=== PATIENT | male | born 1990 | race Caucasian/White ===

== ENCOUNTER 2017-05-19 11:16 | Emergency (ER) | payer OTHER ==
--- NOTE | 2017-05-19 11:34 | EDPHY ---
H & P Stated Complaint: r abd pain Time Seen by Provider: 05/19/17 11:24 HPI/ROS: CHIEF COMPLAINT: Right lower abdominal pain times 4 days HISTORY OF PRESENT ILLNESS: 27-year-old male generally healthy in the ER via private vehicle with mother complaining of right lower abdominal pain which initially started as mild right flank pain but is now progressed to right lower quadrant abdominal pain reproducible with palpation, going over bumps, present for the past 4 days. No nausea or vomiting. Last oral intake was dinner last night. No urinary abnormality. No testicular pain. No current complaints of back or flank pain. REVIEW OF SYSTEMS: A ten point review of systems was performed and is negative with the exception of the items mentioned in the HPI PAST MEDICAL & SURGICAL HISTORY: No pertinent medical or surgical history SOCIAL HISTORY: Daily cigarette smoker PHYSICAL EXAM (Prior to examination, patient consented to physical exam, hands were washed and my usual and customary physical exam procedures followed) 1) GENERAL: Well-developed, well-nourished, alert and oriented. Appears uncomfortable 2) HEAD: Normocephalic, atraumatic 3) HEENT: Pupils equal, round, reactive to light bilaterally. Sclera anicteric. [Nasopharynx, oropharynx, clear, no lesions. Dry mucous membrane 4) NECK: Full range of motion, no meningeal signs. 5) LUNGS: Clear auscultation bilaterally, no wheezes, no rhonchi, no retractions. 6) HEART: Regular rate and rhythm, no murmur, no heave, no gallop. 7) ABDOMEN: No guarding, positive McBurney's point pain, negative Villanueva's, negative Rovsing's, negative peritoneal sign, 8) MUSCULOSKELETAL: Moving all extremities, no focal areas of tenderness, no obvious trauma. No peripheral edema or discoloration. 9) BACK: No CVA tenderness, no midline vertebral tenderness, no fluctuance, no step-off, no obvious trauma, no visual or palpable abnormality. 10) SKIN: No rash, no petechiae. 11) : Normal male external genitalia bilateral testicles nontender, no high- riding testicle, no urethral discharge, cremasteric reflex present and brisk bilaterally. DIFFERENTIAL DIAGNOSIS: [My differential diagnosis includes, but is not limited to, acute appendicitis, acute cholecystitis, bowel obstruction, acute pancreatitis, testicular torsion, gastritis and urinary tract infection. The patient understands that this diagnosis is provisional and can never be 100% accurate. This is a partial list of diagnoses considered. These considerations are based on history, physical exam, past history and reassessment. - Personal History Current Tetanus/Diphtheria Vaccine: Yes Tetanus Vaccine Date: 2004 - Medical/Surgical History Hx Asthma: No Hx Chronic Respiratory Disease: No Hx Diabetes: No Hx Cardiac Disease: No Hx Renal Disease: No Hx Cirrhosis: No Hx Alcoholism: No Hx HIV/AIDS: No Hx Splenectomy or Spleen Trauma: No Other PMH: bleeding ulcers - Social History Smoking Status: Never smoked Constitutional: Initial Vital Signs Temperature (C) 36.6 C 05/19/17 11:20 Heart Rate 54 L 05/19/17 11:20 Respiratory Rate 17 05/19/17 11:20 Blood Pressure 111/62 05/19/17 11:20 O2 Sat (%) 97 05/19/17 11:20 O2 Delivery Mode Room Air Allergies/Adverse Reactions: oxycodone HCl [From Percocet] Allergy (Severe, Verified 05/19/17 11:19) Penicillins Allergy (Severe, Verified 05/19/17 11:19) Medical Decision Making - Diagnostics Imaging Results: Imaging Impressions Abdomen CT 05/19/17 11:32 Impression: 1. Normal CT appearance of the appendix. 2. Features suggestive of a gastroenteritis, with no mechanical obstruction. Findings were discussed with Nito Mensah PA-C at 13:38, on 05/19/2017. Images reviewed by myself ED Course/Re-evaluation: 11:34 a.m.: Patient is focally tender to palpation McBurney's point. Will obtain diagnostic studies and re-evaluated. He remains NPO since dinner last evening. Care of patient under supervision of secondary supervising physician Dr Estevez with whom I discussed case. Patient is focally tender to palpation McBurney's point. Indications risks benefits of CT imaging discussed with patient he consents. 143 p.m.: Re-evaluation. Discussed his CT showing normal appearing appendix. At this time I do not think that further diagnostic studies are indicated. Plan will be discharge home with analgesia, usual and customary abdominal precautions instructions. Patient feels comfortable being discharged. All questions and concerns addressed by myself. - Data Points Laboratory Results: Laboratory Results 05/19/17 11:33 05/19/17 11:33 05/19/17 05/19/17 05/19/17 11:52 11:38 11:33 WBC RBC Hgb POC Hgb 14.6 gm/dL gm/dL (13.7-17.5) Hct POC Hct 43 % % (40-51) MCV MCH MCHC RDW Plt Count MPV Neut % (Auto) Lymph % (Auto) Kleberg % (Auto) Eos % (Auto) Baso % (Auto) Nucleat RBC Rel Count Absolute Neuts (auto) Absolute Lymphs (auto) Absolute Monos (auto) Absolute Eos (auto) Absolute Basos (auto) Absolute Nucleated RBC Immature Gran % Immature Gran # POC Sodium 142 mEq/L mEq/L (135-145) Sodium 143 mEq/L mEq/L (135-145) POC Potassium 3.6 mEq/L mEq/L (3.3-5.0) Potassium 3.9 mEq/L mEq/L (3.5-5.2) POC Chloride 103 mEq/L mEq/L (97-110) Chloride 103 mEq/L mEq/L (97-110) Carbon Dioxide 27 mEq/l mEq/l (22-31) Anion Gap 13 mEq/L mEq/L (8-16) POC BUN 13 mg/dL mg/dL (7-23) BUN 13 mg/dL mg/dL (7-23) Creatinine 0.7 mg/dL mg/dL (0.7-1.3) POC Creatinine 0.7 mg/dL mg/dL (0.7-1.3) Estimated GFR > 60 Glucose 89 mg/dL mg/dL (70-100) POC Glucose 94 mg/dL mg/dL (70-100) Calcium 9.5 mg/dL mg/dL (8.5-10.4) Total Bilirubin 0.7 mg/dL mg/dL (0.1-1.4) Conjugated Bilirubin 0.3 mg/dL mg/dL (0.0-0.5) Unconjugated Bilirubin 0.4 mg/dL mg/dL (0.0-1.1) AST 26 IU/L IU/L (17-59) ALT 44 IU/L IU/L (21-72) Alkaline Phosphatase 72 IU/L IU/L (38-126) Total Protein 7.1 g/dL g/dL (6.3-8.2) Albumin 4.6 g/dL g/dL (3.5-5.0) Lipase 72 IU/L IU/L (23-300) Urine Color PALE YELLOW Urine Appearance CLEAR Urine pH 6.0 (5.0-7.5) Ur Specific Carter 1.009 (1.002-1.030) Urine Protein NEGATIVE (NEGATIVE) Urine Ketones NEGATIVE (NEGATIVE) Urine Blood NEGATIVE (NEGATIVE) Urine Nitrate NEGATIVE (NEGATIVE) Urine Bilirubin NEGATIVE (NEGATIVE) Urine Urobilinogen NEGATIVE EU EU (0.2-1.0) Ur Leukocyte Esterase NEGATIVE (NEGATIVE) Urine RBC 1-3 /hpf /hpf (0-3) Urine WBC 1-3 /hpf /hpf (0-3) Ur Epithelial Cells NONE SEEN /lpf /lpf (NONE-1+) Urine Mucus TRACE /lpf /lpf (NONE-1+) Urine Glucose NEGATIVE (NEGATIVE) 05/19/17 11:33 WBC 6.11 10^3/uL 10^3/uL (3.80-9.50) RBC 4.72 10^6/uL 10^6/uL (4.40-6.38) Hgb 14.6 g/dL g/dL (13.7-17.5) POC Hgb Hct 41.7 % % (40.0-51.0) POC Hct MCV 88.3 fL fL (81.5-99.8) MCH 30.9 pg pg (27.9-34.1) MCHC 35.0 g/dL g/dL (32.4-36.7) RDW 11.9 % % (11.5-15.2) Plt Count 252 10^3/uL 10^3/uL (150-400) MPV 10.2 fL fL (8.7-11.7) Neut % (Auto) 58.4 % % (39.3-74.2) Lymph % (Auto) 32.1 % % (15.0-45.0) Kleberg % (Auto) 6.5 % % (4.5-13.0) Eos % (Auto) 2.1 % % (0.6-7.6) Baso % (Auto) 0.7 % % (0.3-1.7) Nucleat RBC Rel Count 0.0 % % (0.0-0.2) Absolute Neuts (auto) 3.57 10^3/uL 10^3/uL (1.70-6.50) Absolute Lymphs (auto) 1.96 10^3/uL 10^3/uL (1.00-3.00) Absolute Monos (auto) 0.40 10^3/uL 10^3/uL (0.30-0.80) Absolute Eos (auto) 0.13 10^3/uL 10^3/uL (0.03-0.40) Absolute Basos (auto) 0.04 10^3/uL 10^3/uL (0.02-0.10) Absolute Nucleated RBC 0.00 10^3/uL 10^3/uL (0-0.01) Immature Gran % 0.2 % % (0.0-1.1) Immature Gran # 0.01 10^3/uL 10^3/uL (0.00-0.10) POC Sodium Sodium POC Potassium Potassium POC Chloride Chloride Carbon Dioxide Anion Gap POC BUN BUN Creatinine POC Creatinine Estimated GFR Glucose POC Glucose Calcium Total Bilirubin Conjugated Bilirubin Unconjugated Bilirubin AST ALT Alkaline Phosphatase Total Protein Albumin Lipase Urine Color Urine Appearance Urine pH Ur Specific Carter Urine Protein Urine Ketones Urine Blood Urine Nitrate Urine Bilirubin Urine Urobilinogen Ur Leukocyte Esterase Urine RBC Urine WBC Ur Epithelial Cells Urine Mucus Urine Glucose Medications Given: Discontinued Medications Sodium Chloride (Ns) 1,000 mls @ 0 mls/hr IV ONCE ONE PRN Reason: Wide Open Stop: 05/19/17 12:01 Last Admin: 05/19/17 12:07 Dose: 1,000 mls Ketorolac Tromethamine (Toradol) 15 mg IVP EDNOW ONE Stop: 05/19/17 12:01 Last Admin: 05/19/17 12:07 Dose: 15 mg Point of Care Test Results: 05/19/17 11:38 POC Sodium 142 POC Potassium 3.6 POC Chloride 103 POC BUN 13 POC Creatinine 0.7 POC Glucose 94 Departure - Departure Disposition: Home, Routine, Self-Care Clinical Impression: Abdominal pain Qualifiers: Abdominal location: right lower quadrant Qualified Code(s): R10.31 - Right lower quadrant pain Instructions: Acute Abdominal Pain (ED) Additional Instructions: Seek immediate medical attention if you develop new or worsening symptoms, if you develop fevers, chills, inability to tolerate oral intake or any other symptoms that concerns you. Referrals: MELISA STEIN [Other] - 1-2 days without fail Stand Alone Forms: Work Excuse
[2017-05-19 11:42] LABS: PLATELET COUNT 252 10^3/uL (150-400)
[2017-05-19] MEDS ORDERED: KETOROLAC 15 MG/1 ML SDV IVP ONE (12:00)
[2017-05-19] MEDS ORDERED: NS 1,000 ML IV ONE (12:00)
[2017-05-19] MEDS ORDERED: IOPAMIDOL (ISOVUE-300) 100 ML BTL ONE (12:32)
[2017-05-19 14:03] VITALS: RESP 18; TEMP 98.1; O2SAT 93
[2017-05-19 14:13] VITALS: BP 122/53; PULSE 78
== END 2017-05-19 14:10 | disposition home or self-care (01) ==
DX: R10.31 Right lower quadrant pain (principal); F17.210 Nicotine dependence, cigarettes, uncomplicated
CPT/HCPCS: 82947-QW; 96374; J1885; Q9967

== ENCOUNTER 2017-07-06 11:56 | Emergency (ER) | payer OTHER ==
[2017-07-06 12:08] VITALS: BP 99/69
--- NOTE | 2017-07-06 12:16 | EDPHY ---
H & P Stated Complaint: HANNON fears of CO poisoning Time Seen by Provider: 07/06/17 12:15 - Personal History Current Tetanus/Diphtheria Vaccine: No Current Tetanus Diphtheria and Acellular Pertussis (TDAP): No Tetanus Vaccine Date: 2004 - Medical/Surgical History Hx Asthma: No Hx Chronic Respiratory Disease: No Hx Diabetes: No Hx Cardiac Disease: No Hx Renal Disease: No Hx Cirrhosis: No Hx Alcoholism: No Hx HIV/AIDS: No Hx Splenectomy or Spleen Trauma: No Other PMH: bleeding ulcers, ear tubes, - Social History Smoking Status: Never smoked Constitutional: Initial Vital Signs Temperature (C) 36.9 C 07/06/17 12:05 Heart Rate 65 07/06/17 12:05 Respiratory Rate 16 07/06/17 12:05 Blood Pressure 99/69 L 07/06/17 12:05 O2 Sat (%) 96 07/06/17 12:05 O2 Delivery Mode Room Air Allergies/Adverse Reactions: oxycodone HCl [From Percocet] Allergy (Severe, Verified 07/06/17 12:04) Penicillins Allergy (Severe, Verified 07/06/17 12:04) Home Medications: Medication Instructions Recorded NK [No Known Home Meds] 07/06/17 Medical Decision Making ED Course/Re-evaluation: CHIEF COMPLAINT: Memory problems, headache, lethargic HISTORY OF PRESENT ILLNESS: The patient is a 27 y/o male complaining of difficulty remembering information, headache, difficulty sleeping and feeling lethargic onset several weeks ago. He believes his furnace is malfunctioning and he might have carbon monoxide poisoning. Denies chest pain, shortness of breath, abdominal pain, numbness, paresthesias. REVIEW OF SYSTEMS: A 10 point review of systems was performed and is negative with the exception of the elements mentioned in the history of present illness. PHYSICAL EXAM: HR, BP, O2 Sat, RR. Temp noted General Appearance: Lethargic, alert, well hydrated, appropriate, and non- toxic appearing. Head: Atraumatic without scalp tenderness or obvious injury Eyes: Pupils equal, round, reactive to light and accommodation, EOMI, no trauma , no injection. Ears: Clear bilaterally, no perforation, normal landmarks Nose: Atraumatic, no rhinorrhea, clear. Throat: There is no erythema or exudates, no lesions, normal tonsils, mucus membranes moist. Neck: Supple, nontender, no lymphadenopathy. Respiratory: No retractions, no distress, no wheezes, and no accessory muscle use. Lungs are clear to auscultation bilaterally. Cardiovascular: Regular rate and rhythm, no murmurs, rubs, or gallops. Good capillary refill all extremities. Gastrointestinal: Abdomen is soft, nontender, non-distended, no masses, no rebound, no guarding, no peritoneal signs. Musculoskeletal: Normal active ROM of all extremities, atraumatic. Neurological: Alert, appropriate, and interactive. Nonfocal neuro. Skin: No rashes, good turgor, no nodules on palpation. Past medical history: Ulcers Past surgical history: Denies Family history: Denies Social history: Mother at bedside, lives in [facility] DIFFERENTIAL DIAGNOSIS: The differential diagnosis for the patient's altered mental status included but was not limited to depression, hypoglycemia, infectious process, electrolyte abnormality, head injury, neurologic process, anemia, cardiac process, and intoxicants. MEDICAL DECISION MAKING: The patient is a 27 y/o male complaining of difficulty remembering information, headache, difficulty sleeping and feeling lethargic onset several weeks ago. He believes he has carbon monoxide poisoning due to a malfunctioning furnace. Labs ordered. 1250: Patient has normal labs and no carbon monoxide poisoning. 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 1257: Reassessed patient and discussed imaging findings. I have advised him to follow up with his PCP in the next week. Return precautions provided; patient is comfortable with this plan. - Data Points Laboratory Results: 07/06/17 07/06/17 12:38 12:19 POC Hgb 14.3 gm/dL gm/dL (13.7-17.5) POC Hct 42 % % (40-51) Carboxyhemoglobin 1.4 % % (0-1.5) POC Sodium 142 mEq/L mEq/L (135-145) POC Potassium 3.8 mEq/L mEq/L (3.3-5.0) POC Chloride 103 mEq/L mEq/L (97-110) POC BUN 17 mg/dL mg/dL (7-23) POC Creatinine 0.9 mg/dL mg/dL (0.7-1.3) POC Glucose 100 mg/dL mg/dL (70-100) Point of Care Test Results: 07/06/17 12:38 POC Sodium 142 POC Potassium 3.8 POC Chloride 103 POC BUN 17 POC Creatinine 0.9 POC Glucose 100 Departure - Departure Disposition: Home, Routine, Self-Care Clinical Impression: Confusion, Lethargic Condition: Good Instructions: Weakness (ED) Additional Instructions: 1. Your labs are normal. 2. Follow-up with your primary doctor within 72 hours. 3. Return to the Emergency Department for fever, chest pain, shortness of breath , increasing pain or other worsening of condition. Referrals: MELISA STEIN [Other] - As per Instructions Report Scribed for: Colin Schmidt Report Scribed by: Shae Edmonds Date of Report: 07/06/17 Time of Report: 12:18
== END 2017-07-06 13:02 | disposition home or self-care (01) ==
DX: R41.0 Disorientation, unspecified (principal); R53.83 Other fatigue
CPT/HCPCS: 82947-QW